=== PATIENT | female | born 1965 | race African-American/Black ===

== ENCOUNTER 2017-03-02 11:06 | Emergency (ER) | payer MEDICAID ==
[~2017-03-02] VITALS: Ht 170.2 cm; Wt 70.0 kg
[~2017-03-02 11:06] MED LIST: 1-ME1LIQ PO; ACYC200C PO; GABA600T PO; HYDR-3535 PO; OMEP10CA37 PO
[2017-03-02 11:07] VITALS: BP 160/90; PULSE 58; RESP 16; TEMP 98.3; O2SAT 100
[2017-03-02] MEDS ORDERED: SODIUM CHLORIDE 0.9% FLUSH 10 ML FLUSH IV FLUSH PRN (12:15)
[2017-03-02] MEDS ORDERED: ONDANSETRON HCL 4 MG/2 ML VIAL IVP ONE (12:15)
[2017-03-02] MEDS ORDERED: SODIUM CHLOR 0.9% 1000 ML INJ 1,000 ML IV SCH (12:15)
--- NOTE | 2017-03-02 12:18 | PD ---
HPI Chief Complaint: Abdominal Pain Time Seen by Provider: 12:18 Travel History International Travel<30 days: No Contact w/Intl Traveler<30days: No Traveled to known affect area: No History of Present Illness HPI 51-year-old female presents to the emergency department complaining of right lower quadrant abdominal pain. Patient states has been ongoing for approximately one week. She states that she started to feel nauseated today so she came to the emergency department. Patient denies any vomiting. No constipation or diarrhea. Patient reports history of hypertension and allergies. She is currently on amlodipine. Patient denies any previous abdominal surgeries. She denies . Patient denies any vaginal discharge, no risk of STDs. Patient is . Patient denies any fevers or chills. No chest pain or shortness of breath. Patient denies urinary symptoms. PFSH Past Medical History Cardiovascular Problems: Yes (HTN) High Cholesterol: Yes Diminished Hearing: No Hypertension: Yes ?: Unknown Social History Alcohol Use: No Tobacco Use: No Substance Use: No Allergies-Medications (Allergen,Severity, Reaction): Coded Allergies: Iodine (Verified Allergy, Severe, 03/02/17) Tramadol (Verified Allergy, Unknown, 03/02/17) Reported Meds & Prescriptions Reported Meds & Active Scripts Active Reported Amlodipine (Amlodipine Besylate) 10 Mg Tab 10 Mg PO DAILY Omeprazole 10 Mg Cap 10 Mg PO DAILY Zovirax (Acyclovir) 800 Mg Tab 800 Mg PO TID PRN Review of Systems Except as stated in HPI: all other systems reviewed are Neg Physical Exam Narrative GENERAL: Well-nourished, well-developed female patient, ambulatory. Afebrile. SKIN: Focused skin assessment warm/dry. HEAD: Normocephalic. Atraumatic. EYES: No scleral icterus. No injection or drainage. NECK: Supple, trachea midline. No JVD or lymphadenopathy. CARDIOVASCULAR: Regular rate and rhythm without murmurs, gallops, or rubs. RESPIRATORY: Breath sounds equal bilaterally. No accessory muscle use. Lungs sounds are clear to auscultation. GASTROINTESTINAL: Abdomen soft and nondistended. Patient has tenderness over right lower quadrant. MUSCULOSKELETAL: No cyanosis, or edema. BACK: Nontender without obvious deformity. No CVA tenderness. Data Data Last Documented VS Vital Signs Date Time Temp Pulse Resp B/P Pulse Ox O2 Delivery O2 Flow Rate FiO2 03/02/17 12:44 100 Room Air 03/02/17 11:07 98.3 58 16 160/90 Orders Complete Blood Count With Diff (03/02/17 12:15) Comprehensive Metabolic Panel (03/02/17 12:15) Lipase (03/02/17 12:15) Urinalysis - C+S If Indicated (03/02/17 12:15) Iv Access Insert/Monitor (03/02/17 12:15) Ecg Monitoring (03/02/17 12:15) Oximetry (03/02/17 12:15) Ondansetron Inj (Zofran Inj) (03/02/17 12:15) Sodium Chlor 0.9% 1000 Ml Inj (Ns 1000 M (03/02/17 12:15) Sodium Chloride 0.9% Flush (Ns Flush) (03/02/17 12:15) Ed Urine Pregnancytest Poc (03/02/17 12:15) Ct Abd/Pel W Iv Contrast(Rout) (03/02/17 ) Iohexol 350 Inj (Omnipaque 350 Inj) (03/02/17 14:24) Labs Laboratory Tests Test 03/02/17 03/02/17 12:45 12:50 White Blood Count 5.1 TH/MM3 Red Blood Count 5.02 MIL/MM3 Hemoglobin 13.9 GM/DL Hematocrit 42.6 % Mean Corpuscular Volume 85.0 FL Mean Corpuscular Hemoglobin 27.8 PG Mean Corpuscular Hemoglobin 32.7 % Concent Red Cell Distribution Width 13.3 % Platelet Count 280 TH/MM3 Mean Platelet Volume 7.4 FL Neutrophils (%) (Auto) 55.7 % Lymphocytes (%) (Auto) 30.0 % Monocytes (%) (Auto) 9.1 % Eosinophils (%) (Auto) 4.4 % Basophils (%) (Auto) 0.8 % Neutrophils # (Auto) 2.9 TH/MM3 Lymphocytes # (Auto) 1.5 TH/MM3 Monocytes # (Auto) 0.5 TH/MM3 Eosinophils # (Auto) 0.2 TH/MM3 Basophils # (Auto) 0.0 TH/MM3 CBC Comment DIFF FINAL Differential Comment Sodium Level 137 MEQ/L Potassium Level 3.9 MEQ/L Chloride Level 108 MEQ/L Carbon Dioxide Level 21.2 MEQ/L Anion Gap 8 MEQ/L Blood Urea Nitrogen 9 MG/DL Creatinine 0.76 MG/DL Estimat Glomerular Filtration 97 ML/MIN Rate Random Glucose 77 MG/DL Calcium Level 8.7 MG/DL Total Bilirubin 0.5 MG/DL Aspartate Amino Transf 19 U/L (AST/SGOT) Alanine Aminotransferase 17 U/L (ALT/SGPT) Alkaline Phosphatase 88 U/L Total Protein 7.6 GM/DL Albumin 3.1 GM/DL Lipase 111 U/L Urine Color YELLOW Urine Turbidity CLEAR Urine pH 5.5 Urine Specific [place] 1.024 Urine Protein TRACE mg/dL Urine Glucose (UA) NEG mg/dL Urine Ketones NEG mg/dL Urine Occult Blood TRACE Urine Nitrite NEG Urine Bilirubin NEG Urine Urobilinogen LESS THAN 2.0 MG/DL Urine Leukocyte Esterase MOD Urine RBC 1 /hpf Urine WBC 1 /hpf Urine Squamous Epithelial 3 /hpf Cells Urine Mucus FEW /lpf Microscopic Urinalysis Comment CULT NOT INDICATED MDM Medical Decision Making Medical Screen Exam Complete: Yes Emergency Medical Condition: Yes Medical Record Reviewed: Yes Interpretation(s) Last Impressions Abdomen/Pelvis CT 03/02/17 0000 Signed Impressions: Service Date/Time: , March 02, 2017 14:13 - CONCLUSION: 1. 2.8 cm right adnexal lesion probably a right ovarian cyst. Mild constipation. The appendix is normal on CT. Jayme Dsouza MD Differential Diagnosis Appendicitis versus UTI versus ovarian cyst Narrative Course 51-year-old female presents to the emergency department for evaluation right lower quadrant pain that has been ongoing for approximately one week. On exam, the patient does have tenderness over the right lower quadrant. She does appear well exam. Patient has listed allergy to iodine on the chart. However, she states that she has had iodine with imaging without issues. She states that she is only allergic to seafood. Patient states that she can have IV contrast today. CBC, CMP, lipase, UA, urine test are ordered and pending. CT the abdomen/pelvis with IV contrast is ordered and pending. Patient is given normal saline 1 L IV bolus, Zofran 4 mg IV. CBC is unremarkable. CMP shows no acute abnormality. Lipase is 111. UA is negative for acute infection. UPT is negative. CT abdomen/pelvis shows 2.8 cm right adnexal lesion probably a right ovarian cyst. Mild constipation. The appendix is normal on CT. Patient be discharged prescription for ibuprofen for pain and Zofran for nausea. Patient is instructed to follow-up with a labor specialist. She verbalizes agreement and understanding. The patient was discharged in stable condition with instructions, including return instructions and follow up instructions. Diagnosis Primary Impression: Right ovarian cyst Referrals: Transplant Immunologist call for appointment Patient Instructions: General Instructions, Ovarian Cyst (ED) Departure Forms: Tests/Procedures, Work Release Enter return to work date: Mar 04, 2017 Additional Instructions: Take ibuprofen as instructed as needed with food for pain. Take Zofran as instructed as needed for nausea. Follow-up with a labor specialist. Return to the emergency department for any acute worsening of symptoms. Med/Other Pt SpecificInfo: Prescription(s) given Scripts Ondansetron Odt (Zofran Odt)4 Mg Tab4 Mg SL Q6HR PRN (Nausea/Vomiting) #16 TAB Ref 0 Prov:Uma Vázquez 03/02/17 Ibuprofen 600 Mg [id number] Mg PO TID PRN (PAIN SCALE 1 TO 10) #21 TAB Ref 0 Prov:Uma Vázquez 03/02/17 Disposition: 01 DISCHARGE HOME Condition: Stable Uma Vázquez Mar 02, 2017 12:18
[2017-03-02 12:44] VITALS: O2SAT 100
[2017-03-02 13:00] VITALS: BP 143/88; PULSE 51; RESP 17; O2SAT 98
[2017-03-02 13:02] LABS: AUTOMATED NEUTROPHIL # 2.9 TH/MM3 (1.8-7.7); BASOPHIL % 0.8 % (0.0-2.0); EOSINOPHIL # 0.2 TH/MM3 (0-0.4); EOSINOPHIL % 4.4 % (0.0-4.0); HEMATOCRIT 42.6 % (35.0-46.0); HEMO FLAGS DIFF FINAL; LYMPHOCYTE # 1.5 TH/MM3 (1.0-4.8); MEAN CORPUSCULAR HEMOGLOBIN 27.8 PG (27.0-34.0); MEAN CORPUSCULAR HGB CONC 32.7 % (32.0-36.0); MONO % 9.1 % (0.0-8.0); NEUT % 55.7 % (16.0-70.0); PLATELET COUNT 280 TH/MM3 (150-450); RED BLOOD COUNT 5.02 MIL/MM3 (4.00-5.30); RED CELL DISTRIBUTION WIDTH 13.3 % (11.6-17.2); WHITE BLOOD COUNT 5.1 TH/MM3 (4.0-11.0)
[2017-03-02 13:23] LABS: ALT (GPT) 17 U/L (10-53); ANION GAP 8 MEQ/L (5-15); AST (GOT) 19 U/L (15-37); BICARBONATE 21.2 MEQ/L (21.0-32.0); BLOOD UREA NITROGEN 9 MG/DL (7-18); CHLORIDE 108 MEQ/L (98-107); GLOMERULAR FILTRATION RATE 97 ML/MIN (>89); POTASSIUM 3.9 MEQ/L (3.5-5.1); SODIUM (NA) 137 MEQ/L (136-145)
[2017-03-02 13:24] LABS: ALKALINE PHOSPHATASE 88 U/L (45-117); TOTAL BILIRUBIN ADULT 0.5 MG/DL (0.2-1.0)
[2017-03-02 13:25] LABS: BLOOD, URINE TRACE (NEG); COMMENT (UR) CULT NOT INDICATED; CULTURE IF INDICATED CULT NOT INDICATED; GLUCOSE,URINE NEG (NEG); KETONE, URINE NEG (NEG); MUCUS URINE FEW /lpf (OCC); NITRITE,URINE NEG (NEG); PH, URINE 5.5 (5.0-8.5); SQUAMOUS EPITHELIAL CELL URINE 3 /hpf (0-5); URINE COLOR YELLOW (YELLW/STRAW)
[2017-03-02] MEDS ORDERED: IOHEXOL 350 MG/ML 10 ML VIAL (for RAD DIAG) IV ONE (14:24)
[2017-03-02] MEDS ORDERED: AMLO10TA2 PO (14:43)
[2017-03-02] MEDS ORDERED: OMEP10CA PO (14:43)
[2017-03-02] MEDS ORDERED: ACYC-101 PO (14:43)
--- NOTE | 2017-03-02 14:44 | RADRPT ---
EXAM DATE/TIME: 03/02/2017 14:13 [facility] COMPARISON: No previous studies available for comparison. INDICATIONS : Lower abdominal pain with nausea and dizziness. IV CONTRAST: 69 cc Omnipaque 350 (iohexol) IV ORAL CONTRAST: No oral contrast ingested. RADIATION DOSE: 9.96 CTDIvol (mGy) MEDICAL HISTORY : Cardiovascular disease. Hypertension. Diabetes mellitus type 2. SURGICAL HISTORY : None. ENCOUNTER: Initial ACUITY: 1 day PAIN SCALE: 5/10 LOCATION: Bilateral lower quadrant TECHNIQUE: Volumetric scanning of the abdomen and pelvis was performed. Using automated exposure control and ad justment of the mA and/or kV according to patient size, radiation dose was kept as low as reasonably achievable to obtain optimal diagnostic quality images. FINDINGS: LOWER LUNGS: The visualized lower lungs are clear. LIVER: Homogeneous density without lesion. There is no dilation of the biliary tree. No calcified gallston es. SPLEEN: Normal size without lesion. PANCREAS: Within normal limits. KIDNEYS: Normal in size and shape. There is no mass, stone or hydronephrosis. ADRENAL GLANDS: Within normal limits. VASCULAR: There is no aortic aneurysm. BOWEL/MESENTERY: The stomach, small bowel, and colon demonstrate no acute abnormality. There is no free intraperitone al air or fluid. ABDOMINAL WALL: Within normal limits. RETROPERITONEUM: There is no lymphadenopathy. BLADDER: No wall thickening or mass. REPRODUCTIVE: 2.8 cm right adnexal lesion, probably a complex right ovarian cyst. INGUINAL: There is no lymphadenopathy or hernia. MUSCULOSKELETAL: Within normal limits for patient age. CONCLUSION: 1. 2.8 cm right adnexal lesion probably a right ovarian cyst. Mild constipation. The appendix is norm al on CT. Jayme Dsouza MD on March 02, 2017 at 14:38 Board Certified Radiologist. This report was verified electronically.
[2017-03-02] MEDS ORDERED: IBUP-232 PO (14:56)
[2017-03-02] MEDS ORDERED: ZOFR4TAB3 SL (14:56)
[2017-03-02 15:21] VITALS: BP 147/88; PULSE 60; RESP 18; O2SAT 100
== END 2017-03-02 15:25 | disposition home or self-care (01) ==
LOC: NEPD 11:06
DX: N83.201 Unspecified ovarian cyst, right side (principal); I10 Essential (primary) hypertension
CPT/HCPCS: 74177; 80053; 81001; 83690; 84703; 85025; 96361; 96374; 99285; J2405; J7030; Q9967